=== PATIENT | female | born 1940 | race African-American/Black ===

== ENCOUNTER 2025-03-14 09:01 | Inpatient (IN) | payer BC, MEDICAID ==
[~2025-03-14] VITALS: Ht 154.9 cm; Wt 43.1 kg
[~2025-03-14 09:01] MED LIST: ASPI-1079 PO; CLOP75TA33 PO; HYDR25TA78 MT; LEVO-65 MT; LIP40 MT; LOSA50TA41 MT; NIFE90TA60 MT
[2025-03-14 09:05] VITALS: O2SAT 97
[2025-03-14 09:45] LABS: HEMATOCRIT. 36.6 % (36.0-48.0); HEMOGLOBIN. 11.7 g/dL (12.0-16.0); MEAN PLATELET VOLUME 8.4 fl (7.4-10.4); PLATELET 171 x1000/uL (130-400); RED BLOOD CELL COUNT 4.19 mill/uL (4.2-5.4); RED CELL DISTRIBUTION WIDTH 12.9 % (11.6-14.6)
[2025-03-14 09:55] LABS: INR 1.0
[2025-03-14 09:56] LABS: CREATININE 0.8 mg/dL (0.6-1.0); UREA NITROGEN BLOOD 20 mg/dL (9-23)
[2025-03-14 09:57] LABS: ETHANOL BLOOD < 10 mg/dL (<10); PROTEIN TOTAL 8.3 g/dL (6.0-8.3); TROPONIN I HIGH SENSITIVITY < 4 ng/L (3.0-34)
[2025-03-14 09:58] LABS: ASPARTATE AMINOTRANSFERASE 37 IU/L (<34); BILIRUBIN DIRECT 0.1 mg/dL (<=3.0)
[2025-03-14 09:59] LABS: BILIRUBIN TOTAL 0.3 mg/dL (0.1-1.0)
[2025-03-14 11:53] LABS: INFLUENZA TYPE A Presumptive Negative (Pres. Neg.)
[2025-03-14 11:54] LABS: INFLUENZA TYPE B Presumptive Negative (Pres. Neg.)
[2025-03-14 11:55] LABS: RESPIRATORY SYNCYTIAL VIRUS Not Detected (Not Detectd)
[2025-03-14 11:58] LABS: TROPONIN I HIGH SENSITIVITY 24 ng/L (3.0-34)
[2025-03-14 12:28] LABS: CLARITY URINE CLEAR (CLEAR); COLOR URINE YELLOW (YELLOW); GLUCOSE URINE NEGATIVE (NEGATIVE); KETONES URINE NEGATIVE (NEGATIVE); LEUKOCYTE ESTERASE URINE 1+ (NEGATIVE); NITRITE URINE NEGATIVE (NEGATIVE); OCCULT BLOOD URINE NEGATIVE (NEGATIVE); PH URINE 5.5 (4.5-8.0); PROTEIN URINE NEGATIVE (NEGATIVE); SPECIFIC GRAVITY URINE 1.017 (1.005-1.030); UROBILINOGEN URINE 0.2 E.U./dL (0.2-1.0)
[2025-03-14 12:53] LABS: *AMPHETAMINES SCREEN URINE NEGATIVE (NEGATIVE); *BARBITURATES SCREEN URINE NEGATIVE (NEGATIVE); *BENZODIAZEPINES SCREEN URINE NEGATIVE (NEGATIVE); *COCAINE SCREEN URINE NEGATIVE (NEGATIVE); CANNABINOID URINE SCREEN NEGATIVE (NEGATIVE); ECSTASY MDMA SCREEN URINE NEGATIVE (NEGATIVE); METHADONE URINE SCREEN NEGATIVE (NEGATIVE); OPIATES URINE SCREEN NEGATIVE (NEGATIVE); PHENCYCLIDINE URINE SCREEN NEGATIVE (NEGATIVE)
[2025-03-14] MEDS: SODIUM CHLORIDE 0.9% 500 ML IV ONE (12:59)
[2025-03-14] MEDS: ASPIRIN 81MG TABLET PO SCH (13:00)
[2025-03-14] MEDS: CLOPIDOGREL 75MG TABLET PO SCH (13:00)
[2025-03-14] MEDS ORDERED: HYDROCODONE/ACETAMINOPHEN 5/325MG TABLET PO PRN (13:15)
[2025-03-14] MEDS ORDERED: ONDANSETRON HCL 4MG/2ML INJ IV PRN (13:15)
[2025-03-14] MEDS ORDERED: NALOXONE HCL 0.4MG/ML VIAL IV PRN (13:15)
[2025-03-14] MEDS ORDERED: ACETAMINOPHEN 325MG TABLET PO PRN (13:15)
[2025-03-14] MEDS ORDERED: IPRATROPIUM/ALBUTEROL 0.5-3(2.5)MG/3ML NEB HHN PRN (13:15)
[2025-03-14 13:19] LABS: BACTERIA URINE TRACE; RBC URINE NONE SEEN /hpf (0-2); SQUAMOUS EPITHELIAL CELL URINE RARE /lpf (RARE/1+)
[2025-03-14 14:05] VITALS: BP 145/98; PULSE 82; RESP 17; TEMP 36.7516
[2025-03-14 14:26] LABS: BAND% 1.0 % (1.0-6.0); EOSINOPHILS % MANUAL 5.0 % (0.0-5.0); LYMPHOCYTES % MANUAL 36.0 % (20.0-60.0); MONOCYTES % MANUAL 27.0 % (2.0-8.0); NEUTROPHILS % MANUAL 31.0 % (45.0-75.0); PLATELET ESTIMATE NORMAL
[2025-03-14 16:00] VITALS: BP 117/54; PULSE 87; RESP 18; TEMP 36.3; O2SAT 98
[2025-03-14 20:00] VITALS: BP 110/51; PULSE 85; RESP 18; TEMP 36.6; O2SAT 96
[2025-03-14] MEDS: ATORVASTATIN CALCIUM 40MG TABLET PO SCH (20:43)
[2025-03-14 21:25] LABS: CREATINE KINASE MB FRACTION 0.8 ng/mL (0.5-3.6); TROPONIN I HIGH SENSITIVITY 7 ng/L (3.0-34)
[2025-03-15] VITALS: BP 129/63; PULSE 84; RESP 18; TEMP 36.6; O2SAT 98
[2025-03-15 00:50] LABS: CREATINE KINASE MB FRACTION 1.0 ng/mL (0.5-3.6)
[2025-03-15 00:52] LABS: TROPONIN I HIGH SENSITIVITY 7 ng/L (3.0-34)
[2025-03-15 04:00] VITALS: BP 126/58; PULSE 74; RESP 18; TEMP 36.7; O2SAT 99
[2025-03-15 07:14] LABS: HEMATOCRIT. 32.0 % (36.0-48.0); HEMOGLOBIN. 10.4 g/dL (12.0-16.0); MEAN PLATELET VOLUME 9.1 fl (7.4-10.4); PLATELET 144 x1000/uL (130-400); RED BLOOD CELL COUNT 3.71 mill/uL (4.2-5.4); RED CELL DISTRIBUTION WIDTH 12.8 % (11.6-14.6)
[2025-03-15 07:30] LABS: T4 FREE 0.86 ng/dL (0.89-1.76)
[2025-03-15 07:33] LABS: CREATININE 0.6 mg/dL (0.6-1.0)
[2025-03-15 07:34] LABS: UREA NITROGEN BLOOD 15 mg/dL (9-23)
[2025-03-15 08:00] VITALS: BP 131/56; PULSE 75; RESP 16; TEMP 36.7; O2SAT 99
[2025-03-15] MEDS: LEVOFLOXACIN 500MG PREMIX 100 ML IV SCH (08:42)
[2025-03-15 12:00] VITALS: BP 132/63; PULSE 77; RESP 17; TEMP 37.2; O2SAT 100
[2025-03-15 15:36] LABS: EOSINOPHILS % MANUAL 1.0 % (0.0-5.0); LYMPHOCYTES % MANUAL 44.0 % (20.0-60.0); MONOCYTES % MANUAL 16.0 % (2.0-8.0); NEUTROPHILS % MANUAL 39.0 % (45.0-75.0); PLATELET ESTIMATE NORMAL
[2025-03-15 16:00] VITALS: BP 124/66; PULSE 76; RESP 18; TEMP 37.4; O2SAT 96
[2025-03-15 20:00] VITALS: BP 171/84; PULSE 84; RESP 17; TEMP 37.4; O2SAT 100
[2025-03-15] MEDS ORDERED: HYDRALAZINE 20MG/ML VIAL IV PRN (20:45)
[2025-03-15] MEDS: HYDRALAZINE 20MG/ML VIAL IV PRN (20:51)
[2025-03-16] VITALS (7 sets, daily range): BP systolic 114–165; BP diastolic 63–75; PULSE 60–99; RESP 15–17; TEMP 36.3–37.2; O2SAT 87–99
[2025-03-16] MEDS: LEVOFLOXACIN 250MG PREMIX 50 ML IV SCH ×2 (07:30→10:09)
[2025-03-16] MEDS: LOSARTAN 50 MG TABLET PO SCH (18:22)
[2025-03-16] MEDS: HYDRALAZINE HCL 25MG TABLET PO SCH (18:22)
[2025-03-17] VITALS (7 sets, daily range): BP systolic 117–150; BP diastolic 50–79; PULSE 74–92; RESP 16–18; TEMP 36.4–36.8; O2SAT 95–100
[2025-03-17] MEDS ORDERED: IOHEXOL-350 100 ML BOTTLE ONE (23:22)
[2025-03-18 04:00] VITALS: BP 121/61; PULSE 95; RESP 17; TEMP 36.4; O2SAT 95
[2025-03-18 07:22] LABS: TRIGLYCERIDE 39.0 mg/dL (0-150)
[2025-03-18 07:23] LABS: LDL CHOLESTEROL 44.0 mg/dL (5-100)
[2025-03-18 08:00] VITALS: BP 125/60; PULSE 97; RESP 20; TEMP 36; O2SAT 97
[2025-03-18 12:00] VITALS: BP 132/57; PULSE 96; RESP 20; TEMP 36.1; O2SAT 96
[2025-03-18 16:00] VITALS: BP 147/62; PULSE 80; RESP 17; TEMP 36.3; O2SAT 98
[2025-03-18 19:06] VITALS: BP 139/51; PULSE 68; RESP 18; TEMP 97.9
== END 2025-03-19 00:30 | disposition home health service (06) | DRG 65 ==
LOC: ER 09:01 → CANBEDREQ 12:03 → 5WST 12:24
PROVIDERS: ADMIT Internal Medicine; ATTEND Internal Medicine
DX: I63.89 Other cerebral infarction (principal); N39.0 Urinary tract infection, site not specified; D64.9 Anemia, unspecified; Z79.02 Long term (current) use of antithrombotics/antiplatelets; I10 Essential (primary) hypertension; Z20.822 Contact with and (suspected) exposure to COVID-19; Z55.6 Problems related to health literacy; Z79.899 Other long term (current) drug therapy; Z85.3 Personal history of malignant neoplasm of breast; Z86.73 Personal history of transient ischemic attack (TIA), and cerebral infarction without residual deficits; Z88.0 Allergy status to penicillin; Z88.1 Allergy status to other antibiotic agents
CPT/HCPCS: 36415; 70496; 70498; 70551; 71045; 74176; 80048; 80061; 80076; 80305; 80320; 81003; 82550; 82553; 83735; 83880; 84145; 84439; 84443; 84481; 84484; 85025; 87420; 87426; 87804; 93005; 93880; 96360; 97162; 97166; 99285; A4606; J0360; J1956; J7040; Q9967; G0480